=== PATIENT | male | born 1970 | race Caucasian/White ===

== ENCOUNTER 2020-12-19 15:01 | Emergency (ER) | payer OTHER ==
[~2020-12-19] VITALS: Ht 165.1 cm; Wt 50.0 kg
[2020-12-19 15:11] VITALS: BP 143/89
== END 2020-12-19 16:28 ==
LOC: ER 15:01
DX: Z02.89 Encounter for other administrative examinations (principal); R03.0 Elevated blood-pressure reading, without diagnosis of hypertension
CPT/HCPCS: 99283